=== PATIENT | male | born 1980 ===

== ENCOUNTER 2016-05-16 16:49 | Inpatient (IN) ==
[2016-05-16] MEDS ORDERED: PROPOFOL 200 MG/20 ML VIAL IV ONE (16:59)
[2016-05-16] MEDS ORDERED: HYDROmorphone 2 MG/1 ML VIAL IV STA ×2 (17:09→19:51)
[2016-05-16] MEDS ORDERED: DIPH/TET/ACEL PERT BOOSTER VACCINE 0.5 ML VIAL IM ONE ×2 (17:09→17:18)
[2016-05-16] MEDS ORDERED: ONDANSETRON 4 MG/2 ML VIAL IV STA ×2 (17:16→19:51)
[2016-05-16] MEDS ORDERED: ONDANSETRON 4 MG/2 ML VIAL ONE ×2 (17:17→19:43)
[2016-05-16] MEDS ORDERED: HYDROmorphone 2 MG/1 ML VIAL ONE ×2 (17:17→19:43)
[2016-05-16] MEDS ORDERED: ceFAZolin 1,000 MG VIAL ONE (17:17)
[2016-05-16] MEDS ORDERED: SODIUM CHLORIDE 0.9% 100 ML IV ONE (17:18)
[2016-05-16] MEDS ORDERED: SODIUM CHLORIDE 0.9% 1,000 ML IV STA (17:22)
[2016-05-16 17:27] LABS: Basophils % 0.2 % (0.0-0.8); Eosinophils # 0.1 10*3/uL (0.0-0.87); Eosinophils % 1.1 % (0.00-10.9); Hematocrit 42.8 VOL% (42.0-52.0); Hemoglobin 14.5 GM/DL (14.0-18.0); Immature Granulocytes % 0.7 %; Immature Granulocytes Absolute 0.09 #; Lymphocytes # 1.5 10*3/uL (1.4-4.0); Lymphocytes % 11.5 % (21.2-54.2); Mean Corpuscular HGB Conc 33.9 GM/DL (32-36); Mean Corpuscular Hemoglobin 30 PG (27-34); Mean Corpuscular Volume 87.3 FL (87-102); Mean Platelet Volume 9.3 FL (9.6-12.0); Monocytes % 8.2 % (1.7-12.7); Neutrophils # 9.9 10*3/uL (1.4-7.4); Neutrophils % 78.3 % (38.7-73.9); Platelet Count 200 T/CUMM (130-400); Red Cell Distribution Width 12.4 % (9.3-17.3); White Blood Count 12.6 T/CUMM (4-12)
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
--- NOTE | 2016-05-16 17:30 | EKG Report ---
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
[2016-05-16 17:36] LABS: INR 1.2; PT Patient Result 12.8 SECS; Partial Thromboplastin Time 29.9 SECS (0-40)
[2016-05-16 17:43] LABS: Apearance,Urine CLEAR (Clear); Bilirubin,Urine Negative (Negative); Blood, Urine Moderate mg/dL (Negative); Glucose,Urine (UA) >=500 mg/dL (Negative); Ketones,Urine 5 mg/dL (Negative); Mucus,Urine Occasional /LPF (Occasional); Nitrite,Urine Negative (Negative); Protein,Urine 30 MG/DL; RBC,Urine 73 /HPF (0-4); Urine Color Yellow (Yellow); Urine Specific Gravity 1.023 (1.001-1.035); WBC,Urine <1 /HPF (0-6)
[2016-05-16 17:50] LABS: Barbiturates Screen,Urine Negative (Negative); Benzodiazepines Screen,Urine Negative (Negative); Cannabinoid Screen,Urine Negative (Negative); Opiate Screen,Urine Positive (Negative); Phencyclidine Screen,Urine Negative (Negative)
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
[2016-05-16 18:16] LABS: Alanine Aminotransferase 106 U/L (16-61); Alkaline Phosphatase 106 U/L (45-117); Amylase 43 U/L (25-115); Aspartate Amino Transferase 91 U/L (0-37); Blood Urea Nitrogen 22 MG/DL (7-18); CKMB % 0.9 %; Calcium 8.4 MG/DL (8.5-10.1); Glucose 198 MG/DL (74-106); Osmolality,Calculated 287.4 MOS/KG (273-304); Potassium 4.1 MMOL/L (3.5-5.1); Sodium 140 MMOL/L (136-145); Total Protein 7.4 G/DL (6.4-8.3); Troponin I Only < 0.015 NG/ML (0.00-0.045)
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
[2016-05-16] MEDS: LACTATED RINGERS 1,000 ML IV SCH (21:05)
[2016-05-16] MEDS ORDERED: DEXTROSE 50% 25 GM/50 ML VIAL IV PRN (21:27)
[2016-05-16] MEDS ORDERED: SODIUM CHLORIDE 0.9% 250 ML IV PRN (21:27)
[2016-05-16] MEDS ORDERED: GLUCAGON 1 MG VIAL IM PRN (21:27)
[2016-05-16] MEDS: HYDROmorphone 2 MG/1 ML VIAL IV PRN (22:44)
[2016-05-17] MEDS: INSULIN LISPRO 100 UNIT/ML SUBCUT SCH ×5 (01:34→20:45)
[2016-05-17 05:18] LABS: Basophils % 0.3 % (0.0-0.8); Eosinophils # 0.1 10*3/uL (0.0-0.87); Eosinophils % 1.2 % (0.00-10.9); Hematocrit 37.7 VOL% (42.0-52.0); Hemoglobin 12.6 GM/DL (14.0-18.0); Immature Granulocytes % 0.4 %; Immature Granulocytes Absolute 0.03 #; Lymphocytes # 1.1 10*3/uL (1.4-4.0); Lymphocytes % 15.5 % (21.2-54.2); Mean Corpuscular HGB Conc 33.4 GM/DL (32-36); Mean Corpuscular Hemoglobin 29 PG (27-34); Mean Corpuscular Volume 87.9 FL (87-102); Mean Platelet Volume 9.2 FL (9.6-12.0); Monocytes # 0.9 10*3/uL (0.11-0.8); Monocytes % 11.9 % (1.7-12.7); Neutrophils # 5.2 10*3/uL (1.4-7.4); Neutrophils % 70.7 % (38.7-73.9); Platelet Count 169 T/CUMM (130-400); Red Blood Count 4.29 MC/CUMM (3.8-5.5); Red Cell Distribution Width 12.5 % (9.3-17.3); White Blood Count 7.3 T/CUMM (4-12)
[2016-05-17] MEDS ORDERED: ceFAZolin 2,000 MG in PREMIX 1 EACH IV ONE (06:00)
[2016-05-17] MEDS: LACTATED RINGERS 1,000 ML IV SCH ×3 (06:27→21:58)
[2016-05-17] MEDS: HYDROmorphone 2 MG/1 ML VIAL IV PRN (06:42)
--- NOTE | 2016-05-17 07:30 | Orthopedic Progress Note ---
Assessment and Plan (1) Hip dislocation, right Status: Acute Current Visit: Yes Qualifiers: Encounter type: initial encounter Qualified Code(s): S73.004A - Unspecified dislocation of right hip, initial encounter (2) Right acetabular fracture Status: Acute Current Visit: Yes Qualifiers: Encounter type: initial encounter Sublocation of acetabulum: posterior wall Fracture type: closed Fracture alignment: displaced Qualified Code(s) : S32.421A - Displaced fracture of posterior wall of right acetabulum, initial encounter for closed fracture Orthopedics - Subjective Interval history: Comfortable. alert and oriented. RLE NV ok. Plan exploration of hip with removal fragment and orif. All questions answered. Exam - Constitutional Vitals: Period Temp Pulse Resp BP Sys/Waldrop Pulse Ox Last 24 Hr 98.5 F-99.0 F 86-94 18-20 118-120/70-78 90-95 Results - Labs CBC & BMP: 05/17/16 04:48 05/16/16 17:00
[2016-05-17] MEDS ORDERED: BACITRACIN OINT 0.9 GM PACK TOP ONE (08:49)
[2016-05-17] MEDS ORDERED: ROCURONIUM 100 MG/10 ML VIAL IV ONE (09:01)
[2016-05-17] MEDS ORDERED: PROPOFOL 200 MG/20 ML VIAL IV ONE (09:01)
[2016-05-17] MEDS ORDERED: LIDOCAINE 2% 5 ML VIAL ONE (09:01)
[2016-05-17] MEDS ORDERED: TRANEXAMIC ACID 1,000 MG/10 ML VIAL IV ONE (09:48)
[2016-05-17] MEDS ORDERED: diphenhydrAMINE CAP 50 MG CAPSULE PO PRN (11:23)
[2016-05-17] MEDS ORDERED: ONDANSETRON 4 MG/2 ML VIAL IV PRN ×2 (11:23→12:07)
[2016-05-17] MEDS ORDERED: diphenhydrAMINE CAP 25 MG CAPSULE PO PRN (11:23)
[2016-05-17] MEDS ORDERED: oxyCODONE IR 5 MG TABLET PO PRN ×2 (11:23)
--- NOTE | 2016-05-17 11:23 | Operative Note ---
Date of procedure: 05/17/16 Procedure: DIAGNOSIS: Right hip posterior wall acetabular fracture dislocation PROCEDURE: ORIF right posterior wall acetabular fracture, removal osteochondral fragments right hip SURGEON: Eliza ANESTHESIA: General PROCEDURE and FINDINGS: After adequate anesthesia was induced, patient was placed in lateral decubitus position. His right lower extremities prepped and draped in usual sterile fashion. A posterior lateral approach was made. Skin, subcutaneous tissue and iliotibial band was incised. Gluteus diego muscle belly was split in line with its fibers. The external rotators were taken down 15 mm from the insertion. The larger posterior wall fragment had been extruded from the joint. The hip was gently dislocated and multiple small osteochondral fragments were removed. The hip was copiously irrigated with bulb suction. The acetabulum were free of fragments. The hip was relocated. The posterior wall fragment was reduced, temporarily secured with 2.0 mm K wires , and then fixed definitively with 2 2.7 mm lag screws. The hip was taken through gentle range of motion and was stable. Image intensification was used in multiple planes throughout the procedure. Care was taken to protect the sciatic nerve throughout the procedure. Deep layers were closed with 0 Vicryl [id number] sutures. Subcutaneous tissue was closed deep with a 2-0 Vicryl runner and superficially with 3-0 Vicryl interrupted sutures. [place] were used to close the skin. Bacitracin and a sterile dressing was applied. Patient was transferred to recovery room in stable condition. Surgeon / Physician: Simon Kay Jr. Results - Labs CBC & BMP: 05/17/16 04:48 05/16/16 17:00
[2016-05-17] MEDS ORDERED: NALOXONE 0.4 MG/ML VIAL IV PRN (11:29)
--- NOTE | 2016-05-17 11:29 | XRay Report ---
XR hip 2V RT Indication: ORIF right acetabulum Comparison: Pelvis x-ray dated May 16, 2016 Technique: 7 intraoperative fluoroscopic views of the right hip. These include frontal and lateral projections. Fluoroscopy time 27 seconds. Findings: Images submitted during placement of 2 orthopedic screws within the acetabulum. Please see operative report for details. IMPRESSION: As above. PROCEDURE INTERPRETED AT [facility] DEPARTMENT OF RADIOLOGY Final Report Signed by: Dr Erick Turk
[2016-05-17] MEDS ORDERED: DESFLURANE 1 UNIT/15 MINUTE INH ONE (11:31)
[2016-05-17] MEDS ORDERED: fentaNYL 100 MCG/2 ML VIAL ONE (11:31)
[2016-05-17] MEDS ORDERED: MIDAZOLAM 2 MG/2 ML VIAL ONE (11:32)
[2016-05-17] MEDS ORDERED: ACETAMINOPHEN 1,000 MG/100 ML VIAL IV ONE (11:32)
[2016-05-17] MEDS ORDERED: HYDROmorphone 2 MG/1 ML VIAL ONE (11:43)
[2016-05-17] MEDS ORDERED: ONDANSETRON 4 MG/2 ML VIAL ONE (11:43)
[2016-05-17] MEDS ORDERED: HYDROmorphone PCA 30 MG/30 ML SYRINGE IV ONE (11:45)
[2016-05-17] MEDS: HYDROmorphone PCA 30 MG/30 ML SYRINGE IV SCH (12:00)
[2016-05-17] MEDS ORDERED: HYDROmorphone 2 MG/1 ML VIAL IV PRN (12:07)
--- NOTE | 2016-05-17 13:36 | Anesthesia ---
Anesthesia Post OP - Post Ansesthetic Evaluation Patient seen in post op: Yes Resp: within normal limits CV: within normal limits Mental: within normal limits Temp: within normal limits [id number]: within normal limits Nausea and Vomiting: within normal limits Pain: within normal limits
[2016-05-17] MEDS ORDERED: ACETAMINOPHEN 500 MG TABLET PO SCH (16:00)
[2016-05-17] MEDS: ceFAZolin 2,000 MG in PREMIX 1 EACH IV SCH (16:16)
[2016-05-17] MEDS ORDERED: GLUCAGON 1 MG VIAL IM PRN (17:08)
[2016-05-17] MEDS ORDERED: DEXTROSE 50% 25 GM/50 ML VIAL IV PRN (17:08)
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
[2016-05-17] MEDS: DOCUSATE SODIUM 100 MG CAPSULE PO SCH (20:45)
[2016-05-17] MEDS ORDERED: INSULIN LISPRO 100 UNIT/ML SUBCUT SCH (21:00)
[2016-05-18] MEDS: ceFAZolin 2,000 MG in PREMIX 1 EACH IV SCH (00:40)
[2016-05-18 03:36] LABS: Basophils % 0.2 % (0.0-0.8); Eosinophils # 0.1 10*3/uL (0.0-0.87); Eosinophils % 1.1 % (0.00-10.9); Hematocrit 34.2 VOL% (42.0-52.0); Hemoglobin 11.5 GM/DL (14.0-18.0); Immature Granulocytes % 0.5 %; Immature Granulocytes Absolute 0.05 #; Lymphocytes # 1.4 10*3/uL (1.4-4.0); Lymphocytes % 13.5 % (21.2-54.2); Mean Corpuscular HGB Conc 33.6 GM/DL (32-36); Mean Corpuscular Hemoglobin 29 PG (27-34); Mean Platelet Volume 9.1 FL (9.6-12.0); Monocytes # 1.2 10*3/uL (0.11-0.8); Monocytes % 11.3 % (1.7-12.7); Neutrophils # 7.7 10*3/uL (1.4-7.4); Neutrophils % 73.4 % (38.7-73.9); Platelet Count 150 T/CUMM (130-400); Red Blood Count 3.93 MC/CUMM (3.8-5.5); Red Cell Distribution Width 12.2 % (9.3-17.3); White Blood Count 10.4 T/CUMM (4-12)
[2016-05-18 04:09] LABS: Calcium 7.9 MG/DL (8.5-10.1); Osmolality,Calculated 277.8 MOS/KG (273-304); Potassium 3.9 MMOL/L (3.5-5.1)
[2016-05-18] MEDS: FONDAPARINUX 2.5 MG/0.5 ML SYRINGE SUBCUT SCH (06:31)
[2016-05-18] MEDS: LACTATED RINGERS 1,000 ML IV SCH (06:32)
--- NOTE | 2016-05-18 08:12 | Orthopedic Progress Note ---
Orthopedics - Subjective Interval history: Hemoglobin 11.5 comfortable no complaints we will start mobilizing DC Castro Exam - Constitutional Vitals: Period Temp Pulse Resp BP Sys/Waldrop Pulse Ox Last 24 Hr 98.2 F-101.1 F 85-113 14-20 106-133/59-85 96-100 Results - Labs CBC & BMP: 05/18/16 02:58 05/18/16 02:58
[2016-05-18] MEDS: INSULIN LISPRO 100 UNIT/ML SUBCUT SCH ×4 (08:16→21:12)
[2016-05-18] MEDS: DOCUSATE SODIUM 100 MG CAPSULE PO SCH ×2 (09:49→21:11)
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
[2016-05-18] MEDS: HYDROmorphone PCA 30 MG/30 ML SYRINGE IV SCH (13:02)
[2016-05-18] MEDS ORDERED: INSULIN NPH 100 UNIT/ML SUBCUT SCH (16:30)
[2016-05-18] MEDS ORDERED: ACETAMINOPHEN 325 MG TABLET PO PRN (20:44)
[2016-05-19 04:10] LABS: Basophils % 0.2 % (0.0-0.8); Eosinophils # 0.1 10*3/uL (0.0-0.87); Eosinophils % 1.1 % (0.00-10.9); Hematocrit 31.3 VOL% (42.0-52.0); Immature Granulocytes % 0.7 %; Immature Granulocytes Absolute 0.07 #; Lymphocytes # 1.4 10*3/uL (1.4-4.0); Lymphocytes % 13.2 % (21.2-54.2); Mean Corpuscular HGB Conc 35.1 GM/DL (32-36); Mean Corpuscular Hemoglobin 29 PG (27-34); Mean Corpuscular Volume 83.5 FL (87-102); Mean Platelet Volume 9.5 FL (9.6-12.0); Monocytes # 1.3 10*3/uL (0.11-0.8); Monocytes % 12.9 % (1.7-12.7); Neutrophils # 7.4 10*3/uL (1.4-7.4); Neutrophils % 71.9 % (38.7-73.9); Platelet Count 142 T/CUMM (130-400); Red Blood Count 3.75 MC/CUMM (3.8-5.5); White Blood Count 10.3 T/CUMM (4-12)
[2016-05-19] MEDS: FONDAPARINUX 2.5 MG/0.5 ML SYRINGE SUBCUT SCH (06:23)
[2016-05-19] MEDS ORDERED: INSULIN NPH 100 UNIT/ML SUBCUT SCH ×2 (07:47→14:36)
[2016-05-19] MEDS: INSULIN LISPRO 100 UNIT/ML SUBCUT SCH ×4 (08:47→22:09)
[2016-05-19] MEDS: DOCUSATE SODIUM 100 MG CAPSULE PO SCH ×2 (08:48→22:08)
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
--- NOTE | 2016-05-19 09:54 | Hospitalist Progress Note ---
Assessment and Plan (1) Right acetabular fracture Status: Acute Current Visit: Yes Qualifiers: Encounter type: initial encounter Sublocation of acetabulum: posterior wall Fracture type: closed Fracture alignment: displaced Qualified Code(s) : S32.421A - Displaced fracture of posterior wall of right acetabulum, initial encounter for closed fracture (2) Uncontrolled diabetes mellitus Status: Acute Current Visit: Yes Hospitalist: Subjective Interval history: Doing well this morning. He reports that he is prescribed metformin, but does not take it regularly. FSGs remain elevated, increasing NPH insulin. Will discharge him with Metformin with plans to see his pcp in the next few days. Exam - Constitutional Vitals: Period Temp Pulse Resp BP Sys/Waldrop Pulse Ox Last 24 Hr 97.2 F-102.5 F 93-112 14-19 108-121/60-86 92-98 General appearance: over weight - Head Head exam: Present: normocephalic, atraumatic - Eye Eye exam: Present: EOMI Pupils: Present: JACI - ENT ENT exam: Present: normal exam - Neck Neck exam: Present: normal inspection - Respiratory Respiratory exam: Present: clear to auscultation bilaterally. Absent: rhonchi, wheezes - Cardiovascular Cardiovascular exam: Present: regular rate and rhythm - GI/Abdominal GI/Abdominal exam: Present: normal bowel sounds, soft - Neurological Exam Neurological exam: Present: alert, oriented X3 - Psychiatric Psychiatric exam: Present: normal affect, normal mood - Skin Skin exam: Present: warm, intact Results - Labs CBC & BMP: 05/19/16 03:15 05/18/16 02:58
[2016-05-19] MEDS: HYDROmorphone PCA 30 MG/30 ML SYRINGE IV SCH ×2 (12:34→12:54)
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
[2016-05-20] MEDS: LACTATED RINGERS 1,000 ML IV SCH ×2 (05:03→05:05)
[2016-05-20 05:06] LABS: Basophils % 0.2 % (0.0-0.8); Eosinophils # 0.2 10*3/uL (0.0-0.87); Eosinophils % 2.6 % (0.00-10.9); Hematocrit 30.7 VOL% (42.0-52.0); Hemoglobin 10.7 GM/DL (14.0-18.0); Immature Granulocytes % 0.5 %; Immature Granulocytes Absolute 0.04 #; Lymphocytes # 1.4 10*3/uL (1.4-4.0); Lymphocytes % 16.3 % (21.2-54.2); Mean Corpuscular HGB Conc 34.9 GM/DL (32-36); Mean Corpuscular Hemoglobin 30 PG (27-34); Mean Corpuscular Volume 84.8 FL (87-102); Mean Platelet Volume 9.8 FL (9.6-12.0); Monocytes # 0.9 10*3/uL (0.11-0.8); Monocytes % 10.1 % (1.7-12.7); Neutrophils # 6.2 10*3/uL (1.4-7.4); Neutrophils % 70.3 % (38.7-73.9); Platelet Count 159 T/CUMM (130-400); Red Blood Count 3.62 MC/CUMM (3.8-5.5); White Blood Count 8.8 T/CUMM (4-12)
[2016-05-20] MEDS: FONDAPARINUX 2.5 MG/0.5 ML SYRINGE SUBCUT SCH (05:56)
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
[2016-05-20] MEDS: DOCUSATE SODIUM 100 MG CAPSULE PO SCH ×2 (08:34→21:20)
[2016-05-20] MEDS: INSULIN LISPRO 100 UNIT/ML SUBCUT SCH ×4 (08:34→21:20)
--- NOTE | 2016-05-20 10:01 | Orthopedic Progress Note ---
Assessment and Plan (1) Hip dislocation, right Status: Acute Current Visit: Yes Qualifiers: Encounter type: initial encounter Qualified Code(s): S73.004A - Unspecified dislocation of right hip, initial encounter (2) Right acetabular fracture Status: Acute Current Visit: Yes Qualifiers: Encounter type: initial encounter Sublocation of acetabulum: posterior wall Fracture type: closed Fracture alignment: displaced Qualified Code(s) : S32.421A - Displaced fracture of posterior wall of right acetabulum, initial encounter for closed fracture Orthopedics - Subjective Interval history: Progressing slowly with physical therapy. Dressing dry. NV ok. hgb stable Mobilize with therapy. Plan home tomorrow. Add celebrex. Patient has allergy to asa only. He is able to take advil. Stop ivf and tensile tester. Exam - Constitutional Vitals: Period Temp Pulse Resp BP Sys/Waldrop Pulse Ox Last 24 Hr 99 F-100.0 F 100-110 16-20 101-131/66-80 93-95 Results - Labs CBC & BMP: 05/20/16 03:23 05/18/16 02:58
[2016-05-20] MEDS: CELECOXIB 200 MG CAPSULE PO SCH (10:54)
[2016-05-20] MEDS: MAGNESIUM HYDROXIDE SUSP 30 ML UDCUP PO PRN ×2 (11:02→21:20)
--- NOTE | 2016-05-20 13:01 | Hospitalist Progress Note ---
Assessment and Plan (1) Right acetabular fracture Status: Acute Current Visit: Yes Qualifiers: Encounter type: initial encounter Sublocation of acetabulum: posterior wall Fracture type: closed Fracture alignment: displaced Qualified Code(s) : S32.421A - Displaced fracture of posterior wall of right acetabulum, initial encounter for closed fracture (2) Uncontrolled diabetes mellitus Status: Acute Current Visit: Yes Hospitalist: Subjective Interval history: No acute events overnight. Pain is controlled. Afebrile for over 24 hours. Increasing insulin today. On discharge, will send on metformin with f/u in the next week with his pcp at the [facility]. Prescription is in the chart. Exam - Constitutional Vitals: Period Temp Pulse Resp BP Sys/Waldrop Pulse Ox Last 24 Hr 99 F-100.0 F 106-110 18-20 110-131/69-80 93-94 General appearance: over weight - Head Head exam: Present: normocephalic, atraumatic - Eye Eye exam: Present: EOMI Pupils: Present: JACI - ENT ENT exam: Present: normal exam - Neck Neck exam: Present: normal inspection. Absent: tenderness - Respiratory Respiratory exam: Present: clear to auscultation bilaterally. Absent: rhonchi, wheezes - Cardiovascular Cardiovascular exam: Present: regular rate and rhythm - GI/Abdominal GI/Abdominal exam: Present: normal bowel sounds, soft. Absent: tenderness, rebound - Extremities Exam Extremities exam: Present: normal inspection - Back Exam Back exam: Present: normal inspection - Neurological Exam Neurological exam: Present: alert, oriented X3 - Psychiatric Psychiatric exam: Present: normal affect, normal mood - Skin Skin exam: Present: warm, intact Results - Labs CBC & BMP: 05/20/16 03:23 05/18/16 02:58
[2016-05-20] MEDS: INSULIN NPH 100 UNIT/ML SUBCUT SCH (17:38)
[2016-05-21] MEDS: FONDAPARINUX 2.5 MG/0.5 ML SYRINGE SUBCUT SCH (06:22)
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
[2016-05-21 07:12] LABS: Calcium 7.9 MG/DL (8.5-10.1); Osmolality,Calculated 282.4 MOS/KG (273-304); Potassium 3.9 MMOL/L (3.5-5.1)
[2016-05-21] MEDS: CELECOXIB 200 MG CAPSULE PO SCH (09:37)
[2016-05-21] MEDS: DOCUSATE SODIUM 100 MG CAPSULE PO SCH ×2 (09:37→20:43)
[2016-05-21] MEDS: MAGNESIUM HYDROXIDE SUSP 30 ML UDCUP PO PRN (09:38)
[2016-05-21] MEDS: INSULIN NPH 100 UNIT/ML SUBCUT SCH ×2 (09:40→16:59)
[2016-05-21] MEDS: INSULIN LISPRO 100 UNIT/ML SUBCUT SCH ×4 (09:40→21:46)
--- NOTE | 2016-05-21 10:20 | Hospitalist Progress Note ---
Assessment and Plan (1) Right acetabular fracture Status: Resolved Current Visit: Yes Qualifiers: Encounter type: initial encounter Sublocation of acetabulum: posterior wall Fracture type: closed Fracture alignment: displaced Qualified Code(s) : S32.421A - Displaced fracture of posterior wall of right acetabulum, initial encounter for closed fracture (2) Uncontrolled diabetes mellitus Status: Chronic Current Visit: Yes Hospitalist: Subjective Interval history: No acute events overnight. Plan is for discharge today. Patient to resume metformin at discharge, prescription written and in chart. He will follow-up at [facility] within the week. Exam - Constitutional Vitals: Period Temp Pulse Resp BP Sys/Waldrop Pulse Ox Last 24 Hr 97.4 F-99.2 F 90-109 18-20 108-135/59-92 94-99 General appearance: over weight - Head Head exam: Present: normocephalic, atraumatic - Eye Eye exam: Present: EOMI Pupils: Present: JACI - ENT ENT exam: Present: normal exam - Neck Neck exam: Present: normal inspection - Respiratory Respiratory exam: Present: clear to auscultation bilaterally. Absent: rhonchi, wheezes - Cardiovascular Cardiovascular exam: Present: regular rate and rhythm - GI/Abdominal GI/Abdominal exam: Present: normal bowel sounds, soft. Absent: tenderness, rebound - Extremities Exam Extremities exam: Present: normal inspection - Back Exam Back exam: Present: normal inspection - Neurological Exam Neurological exam: Present: alert, oriented X3 - Psychiatric Psychiatric exam: Present: normal affect, normal mood - Skin Skin exam: Present: warm, intact Results - Labs CBC & BMP: 05/20/16 03:23 05/21/16 06:32 Specialty Discharge - Follow Up or Referrals Follow up with: Simon Kay Jr., MD [Physician] - 05/29/16 1:30 pm
--- NOTE | 2016-05-21 16:33 | General Surgery Progress Note ---
Assessment and Plan - Time spent with patient Time spent discussing smoking cessation with patient: 3 to 10 minutes (1) Closed right acetabular fracture Status: Acute Assessment and plan: Mobilizing better and pain better control. Maintain recs as per ortho - appreciate input. Continue pain mgmt and RISSA hose. Pharmacologic DVT ppx while inpt. Will review with ortho whether pharmacologic DVT ppx is indicated outpt. Plan for D/c to [facility] in am. Pt has been accepted. Current Visit: Yes (2) Constipation Status: Acute Assessment and plan: Constipation: Patient has not had a bowel movement but he does have flatus. This was treated this morning and he has no signs of acute abdomen to indicate postoperative ileus at this time. We will encourage fluids, activity, and allow his laxative time to be effective. Monitor. Current Visit: Yes Qualifiers: Constipation type: drug induced constipation Qualified Code(s): K59.03 - Drug induced constipation Subjective Patient reports: Present: no new complaints, tolerating liquids well, tolerating a regular diet, flatus, no bowel movement (No abdominal pain. Mobilizing well with PT. ), afebrile. Absent: nausea, vomiting, shortness of breath Exam - Constitutional Vitals: Period Temp Pulse Resp BP Sys/Waldrop Pulse Ox Last 24 Hr 97.3 F-98.7 F 80-99 18-20 108-144/69-92 94-95 General appearance: no acute distress - Respiratory Respiratory exam: Present: clear to auscultation bilaterally. Absent: rales, rhonchi, wheezes - Cardiovascular Cardiovascular exam: Present: RRR - GI/Abdominal GI/Abdominal exam: Present: normal bowel sounds, soft. Absent: distended, guarding, tenderness, rebound - Extremities Exam Extremities exam: Absent: calf tenderness, edema - Neurological Exam Neurological exam: Present: alert, oriented X3 Results - Labs CBC & BMP: 05/20/16 03:23 05/21/16 06:32 Specialty Discharge - Follow Up or Referrals Follow up with: Simon Kay Jr., MD [Physician] - 05/29/16 1:30 pm
[2016-05-21] MEDS: LACTATED RINGERS 1,000 ML IV SCH (23:27)
[2016-05-22] MEDS: FONDAPARINUX 2.5 MG/0.5 ML SYRINGE SUBCUT SCH (05:30)
--- NOTE | 2016-05-22 08:09 | Event Note ---
I have discussed the patient's care with Dr. Shaffer at the [facility]. He has accepted the patient to room 319 at the [facility].
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
[2016-05-22] MEDS: DOCUSATE SODIUM 100 MG CAPSULE PO SCH (09:06)
[2016-05-22] MEDS: INSULIN NPH 100 UNIT/ML SUBCUT SCH ×2 (09:07→17:19)
[2016-05-22] MEDS: CELECOXIB 200 MG CAPSULE PO SCH (09:07)
[2016-05-22] MEDS: INSULIN LISPRO 100 UNIT/ML SUBCUT SCH ×3 (09:07→17:19)
--- NOTE | 2016-05-22 09:20 | Orthopedic Progress Note ---
Assessment and Plan (1) Hip dislocation, right Status: Acute Current Visit: Yes Qualifiers: Qualified Code(s): S73.004A - Unspecified dislocation of right hip, initial encounter (2) Right acetabular fracture Status: Resolved Current Visit: Yes Qualifiers: Qualified Code(s): S32.421A - Displaced fracture of posterior wall of right acetabulum, initial encounter for closed fracture Orthopedics - Subjective Interval history: Mr. Guerrero is been accepted to [facility] swing bed. Dressing clean, dry and intact. Right lower extremities neurovascular change. Plan: [facility]. He needs to continue Arixtra while at the [facility]; he can stop the Arixtra when discharged from swing bed. The lina can be removed May 29, 2016. Change the follow-up appointment to approximately 3 to 4 weeks. 30 pounds partial weightbearing right lower extremity. Hip precautions. Wear RISSA hose for 4 weeks. Prescription for [place] 7.5 and Celebrex was written. Exam - Constitutional Vitals: Period Temp Pulse Resp BP Sys/W[place]rop Pulse Ox Last 24 Hr 97.6 F-98.9 F 85-99 18-20 110-144/51-82 95-100 Results - Labs CBC & BMP: 05/20/16 03:23 05/21/16 06:32 Specialty Discharge - Follow Up or Referrals Follow up with: Simon Kay Jr., MD [Physician] - 06/13/16 1:15 pm () Ashvin Pate MD [Physician] -
[2016-05-22] MEDS ORDERED: BISACODYL 10 MG SUPP RECTAL PRN (10:24)
[2016-05-22 16:13] VITALS: BP 112/64
== END 2016-05-22 17:45 | DRG 516 ==
LOC: N.ED 16:49 → N.EDINP 19:21 → N.3E 20:16
PROVIDERS: ADMIT Surgery; ATTEND Surgery